=== PATIENT | female | born 1955 | race Caucasian/White ===

== ENCOUNTER 2024-04-23 20:23 | Emergency (ER) | payer BC ==
[~2024-04-23] VITALS: Ht 149.9 cm; Wt 85.8 kg
[2024-04-23 20:30] VITALS: TEMP 98.5
[2024-04-23 20:50] LABS: BASOPHILS % (AUTO) 0.7 % (0-1); EOSINOPHILS % (AUTO) 0.6 % (0-6); HEMATOCRIT 45.4 % (35.0-45.0); LYMPHOCYTES % (AUTO) 17.3 % (21-51); MEAN CORPUSCULAR HEMOGLOBIN 28.7 PG (27.0-31.0); MEAN PLATELET VOLUME 8.1 FL (7.4-10.4); MONOCYTES # (AUTO) 0.7 X10'3 (0-0.9); MONOCYTES % (AUTO) 13.5 % (2-12); NEUTROPHILS # (AUTO) 3.7 X10'3 (1.8-7.7); NEUTROPHILS % (AUTO) 67.9 % (42-75); PLATELET COUNT 215 X10'3 (140-440); RED BLOOD COUNT 5.22 X10'6 (4.20-5.60); RED CELL DISTRIBUTION WIDTH 14.3 % (11.5-14.5); WHITE BLOOD COUNT 5.5 X10'3 (4.5-11.0)
[2024-04-23 21:06] LABS: BILIRUBIN,URINE NEGATIVE (Neg); CLARITY,URINE CLEAR (Clear); COLOR,URINE YELLOW (Yellow); GLUCOSE, URINE NEGATIVE (Neg); KETONES,URINE NEGATIVE (Neg); LEUKOCYTE ESTERASE ,URINE NEGATIVE (Neg); NITRITES, URINE NEGATIVE (Neg); OCCULT BLOOD,URINE MODERATE (Neg); PROTEIN,URINE TRACE mg/dl (Neg)
[2024-04-23 21:07] LABS: ALANINE AMINOTRANSFERASE 22 U/L (12-78); ALBUMIN 3.1 G/DL (3.4-5.0); ALBUMIN/GLOBULIN RATIO 0.7 (1.1-1.5); ALKALINE PHOSPHATASE 136 IU/L (46-116); ANION GAP 8 (8-16); ASPARTATE AMINO TRANSFERASE 22 U/L (10-37); BILIRUBIN,TOTAL 0.2 MG/DL (0.1-1.0); BLOOD UREA NITROGEN 11 MG/DL (7-18); BUN/CREATININE RATIO 13.8 (10.0-20.0); CALCIUM 8.3 MG/DL (8.5-10.1); CHLORIDE 105 MMOL/L (99-107); GLUCOSE 113 MG/DL (70-104); POTASSIUM 4.1 MMOL/L (3.5-5.1); SODIUM 139 MMOL/L (135-145); TOTAL CARBON DIOXIDE 26.1 MMOL/L (24-32); TOTAL PROTEIN 7.3 G/DL (6.4-8.2); eCRCL 47 ML/MIN; eGFR 72 ML/MIN
[2024-04-23 21:12] LABS: UA COLLECTION TYPE VOIDED
[2024-04-23 21:14] LABS: SQUAMOUS EPITHELIAL CELL,UR MODERATE /LPF (FEW); WBC,URINE 0-4 /HPF (0-4)
[2024-04-23 21:15] LABS: LIPASE 48 U/L (16-77); PRO BRAIN NATRIURETIC PEPTIDE 315 PG/ML (0-125)
[2024-04-23 21:15] LABS: BACTERIA,URINE 1+ /HPF (Neg)
[2024-04-24 00:19] VITALS: BP 163/82; PULSE 78; RESP 18; O2SAT 96
[2024-04-24] MEDS: ibuprofen tablet 400 MG TABLET PO ONE (01:06)
[2024-04-24] MEDS: acetaminophen 325mg tablet PO ONE ×2 (01:06→01:10)
[2024-04-24] MEDS: ibuprofen 200mg tablet PO ONE (01:10)
[2024-04-24] MEDS ORDERED: HYDR-3965 PO (01:19)
[2024-04-24] MEDS ORDERED: ibuprofen 200mg tablet PO ONE (01:20)
== END 2024-04-24 01:30 | disposition home or self-care (01) ==
LOC: ER 20:24
DX: K46.9 Unspecified abdominal hernia without obstruction or gangrene (principal); K57.30 Diverticulosis of large intestine without perforation or abscess without bleeding; Z91.041 Radiographic dye allergy status; Z88.2 Allergy status to sulfonamides; Z88.6 Allergy status to analgesic agent; Z79.899 Other long term (current) drug therapy
CPT/HCPCS: 36415; 71045; 74176; 80053; 81001; 83690; 83880; 84484; 85025; 93005; 99285